=== PATIENT | male | born 1995 | race Caucasian/White ===

== ENCOUNTER 2018-05-05 07:22 | Emergency (ER) | payer OTHER ==
[2018-05-05 07:33] VITALS: BP 130/86
--- NOTE | 2018-05-05 08:28 | UC ---
Complaint Male HPI - HPI Summary HPI Summary: This is a healthy 23-year-old male who comes to the urgent care center because he is worried about having contracted chlamydia. The patient states that approximately one month ago he was with a partner and his condom broke. The female partner told him yesterday that she was with another partner who had chlamydia and that she is being treated. She did not say that she was positive on chlamydia testing. The patient essentially has no complaints. Specifically he does not have dysuria or penile discharge. - History of Current Complaint Chief Complaint: UCSTDScreening Stated Complaint: STD TESTING Time Seen by Provider: 05/05/18 07:55 Pain Intensity: 0 - Allergies/Home Medications Allergies/Adverse Reactions: Allergies Allergy/AdvReac Type Severity Reaction Status Date / Time corticosporin Allergy Unknown Uncoded 05/05/18 07:33 Reaction Details PMH/Surg Hx/FS Hx/Imm Hx - Additional Past Medical History Additional PMH: PMH is non contributory to present complaint. Patient does state that his previous blood pressure readings were borderline high. This was discussed and he will follow up. Previously Healthy: Yes Other History Of: Negative For: Anticoagulant Therapy - Surgical History Surgical History: Yes Surgery Procedure, Year, and Place: appy - Family History Known Family History: Positive: None - patient denies any hx of hypertension in his family - Social History Alcohol Use: Weekly Substance Use Type: Marijuana Substance Use Comment - Amount & Last Used: daily Smoking Status (MU): Never Smoked Tobacco Review of Systems Constitutional: Negative Skin: Negative Eyes: Negative ENT: Negative Respiratory: Negative Cardiovascular: Negative Gastrointestinal: Negative Genitourinary: Negative Motor: Negative Neurovascular: Negative Musculoskeletal: Negative Neurological: Negative Psychological: Negative Is Patient Immunocompromised?: No All Other Systems Reviewed And Are Negative: Yes - Comments Additional Review of Systems Comments: Patient is here for STD testing; no health complaints at this time. Physical Exam - Summary Physical Exam Summary: Appearance: The patient is well-appearing, is in no pain or distress, and is well-nourished. Eyes: Conjunctiva are clear. Pupils are equal and reactive to light and accommodation. Extra ocular muscle movement is intact. ENT: The hearing is grossly normal, the pharynx is normal, and the TMs are normal. There is no muffled or hoarse voice. No stridor. Neck: The neck is supple and there is no lymphadenopathy. Respiratory: The chest is nontender to palpation and without crepitus. The lungs are clear, there are normal breath sounds, and there is no respiratory distress. No wheezes, rales or rhonchi. Cardiovascular: Heart sounds reveal a regular rate and rhythm. There are no clicks, rubs or murmurs. There are no carotid bruits or thrills. Circulation is grossly intact. Abdomen: The abdomen is soft and nontender. There is no organomegaly. Bowel sounds are present and within normal limits. No point tenderness at McBurneys point. Musculoskeletal: Strength is intact. The patient moves all extremities. x. Neurological: The patient is alert. Motor and sensory are examination grossly intact. Speech is normal. Psychological: The patient displays age appropriate behavior Skin: Negative for rashes. : normal male genitalia; no pain on testicle palpation. Triage Information Reviewed: Yes Vital Signs: Initial Vital Signs Temp 99.1 F 05/05/18 07:27 Pulse 84 05/05/18 07:27 Resp 18 05/05/18 07:27 BP 130/86 05/05/18 07:27 Pulse Ox 98 05/05/18 07:27 Complaint Male Course/Dx - Course Course Of Treatment: Healthy male who comes to the urgent care center for STD testing. The patient is specifically concerned about chlamydia because of a possible exposure. The patient was tested by RNA urine and started on doxycycline, one pill twice a day for 7 days, pending the results of the chlamydia and gonorrhea testing. The patient has no signs or symptoms of chlamydia, and the course of treatment was discussed with the patient and he voiced understanding. The patient will follow up if there are any symptoms that develop or if his GC test is positive. - Differential Dx/Diagnosis Provider Diagnoses: STD TESTING: CHLAMYDIA/GONORRHEA Discharge - Sign-Out/Discharge Documenting (check all that apply): Patient Departure All imaging exams completed and their final reports reviewed: Yes - Discharge Plan Condition: Stable Disposition: HOME Prescriptions: DOXYcycline CAP(*) [DOXYcycline 100MG CAP(*)] 100 mg PO BID #14 cap Patient Education Materials: Chlamydia (ED) Referrals: Nancy Mehta MD [Primary Care Provider] - Additional Instructions: WE DISCUSSED: PLEASE SEEK CARE AT THE EMERGENCY DEPARTMENT IF SYMPTOMS WORSEN OR IF NEW SYMPTOMS DEVELOP. Based on your history and physical examination, so unlikely that you have Chlamydia but not impossible. We will be testing and I have given you doxycycline 1 pill twice a day for 7 days. If the test comes back negative you can stop doxycycline. If you develop any burning on urination or discharge, recheck. If you're testing shows any other illness, will call you and he will be treated appropriately. Your blood pressure reading today was above 120/80, indicating HYPERTENSION. Follow-up with your primary care provider within 4 weeks for blood pressure check and appropriate recommendations and treatment, as needed. - Billing Disposition and Condition Condition: STABLE Disposition: Home
== END 2018-05-05 08:29 | disposition home or self-care (01) ==
LOC: UCEAST 07:22
DX: Z11.3 Encounter for screening for infections with a predominantly sexual mode of transmission (principal); F12.90 Cannabis use, unspecified, uncomplicated; Z88.1 Allergy status to other antibiotic agents
CPT/HCPCS: 87491; 87591; 99212; G0463

== ENCOUNTER 2018-09-20 07:21 | Emergency (ER) | payer OTHER ==
[2018-09-20 07:33] VITALS: BP 120/76
--- NOTE | 2018-09-20 07:54 | UC ---
Throat Pain/Nasal Ned HPI - HPI Summary HPI Summary: Patient presents to urgent care with 5 days progressive sore throat. Patient states she's got some postnasal drip and sinus congestion. Patient states his ears are full. Patient without cough. Patient states he's been taking DayQuil and NyQuil with improvement. Patient denies rash. No abdominal pain. No nausea vomiting. Patient with mild fatigue. Patient was outside as a [employer] and states it's been difficult because he gets so congested. Patient wears a piece mask for warmth outside. Patient states she's had tonsillitis repeatedly and this feels similar. Patient's medications reviewed this visit - History of Current Complaint Chief Complaint: UCGeneralIllness Stated Complaint: SORE THROAT Time Seen by Provider: 09/20/18 07:54 Hx Obtained From: Patient Pain Intensity: 0 - Allergies/Home Medications Allergies/Adverse Reactions: Allergies Allergy/AdvReac Type Severity Reaction Status Date / Time corticosporin Allergy Unknown Uncoded 05/05/18 07:33 Reaction Details Home Medications: Home Medications D-Methorphan/PE/Acetaminophen [Gnp Day Time Cold/Flu Rel] 1 liq PO SEE INSTRUCTIONS PRN 09/20/18 [History Confirmed 09/20/18] PMH/Surg Hx/FS Hx/Imm Hx Previously Healthy: Yes Other History Of: Negative For: Anticoagulant Therapy - Surgical History Surgical History: Yes Surgery Procedure, Year, and Place: appy - Family History Known Family History: Positive: Non-Contributory - Social History Occupation: Employed Full-time - [employer] Lives: With Family Alcohol Use: Weekly Substance Use Type: Marijuana Substance Use Comment - Amount & Last Used: daily Smoking Status (MU): Never Smoked Tobacco - Immunization History Most Recent Tetanus Shot: utd Review of Systems All Other Systems Reviewed And Are Negative: Yes Constitutional: Positive: Fatigue Skin: Positive: Negative ENT: Positive: Sore Throat, Sinus Congestion Respiratory: Positive: Negative Is Patient Immunocompromised?: No Physical Exam - Summary Physical Exam Summary: Vital Signs Reviewed: Yes A+Ox3, no distress Eyes: Conjunctiva Clear, OTILIO. EOM intact and full ENT: Hearing grossly normal TM x 2 clear, turbinates inflammed and boggy, + PND thick, mmoist, uvula midline, no exudate, no erythema Neck: Positive: Supple Respiratory: Positive: No respiratory distress, No accessory muscle use + CTA throughout no w/r Cardiovascular: RRR nl s1, s2 no m/r CBT <2 sec abd soft + BS nt/nd no guarding, no distension Musculoskeletal Exam: POSADAS x 4 without difficulty Strength Intact, ROM Intact Neurological: Positive: Alert, + sensation throughout Psychological: Positive: Normal Response To Family Skin: Positive: no rash, no ecchymosis Triage Information Reviewed: Yes Vital Signs: Initial Vital Signs Temp 98 F 09/20/18 07:29 Pulse 78 09/20/18 07:29 Resp 18 09/20/18 07:29 BP 120/76 09/20/18 07:29 Pulse Ox 96 09/20/18 07:29 Throat Pain/Nasal Course/Dx - Course Course Of Treatment: Patient presents with 5 days progressive head congestion sore throat postnasal drip. Patient reports tactile temperatures. Patient's been taking DayQuil Ricardo with improvement. Patient states she's a painful swallowing but isn't able to eat and drink. On exam vital signs are stable. Patient did take DayQuil this morning. Patient with exam consistent with sinusitis. Patient with pain over his maxillary sinuses left greater than right. Patient with thick postnasal drip. Patient does have some mild erythema of his tonsils. Strep is negative. We'll place patient in biotics for sinuses. Flonase. Motrin Tylenol. Discussed with patient secretion precaution return precaution. Patient comfortable in agreement with plan. - Differential Dx/Diagnosis Provider Diagnosis: Rhinosinusitis Discharge - Sign-Out/Discharge Documenting (check all that apply): Patient Departure All imaging exams completed and their final reports reviewed: No Studies - Discharge Plan Condition: Stable Disposition: HOME Prescriptions: Amoxicillin PO (*) [Amoxicillin 875 MG (*)] 875 mg PO BID #20 tab Fluticasone NASAL SPRAY 50MCG* [Flonase NASAL SPRAY 50MCG*] 2 spray BOTH NARES DAILY #1 btl Patient Education Materials: Pharyngitis (ED), Rhinosinusitis (ED) Referrals: Nancy Mehta MD [Primary Care Provider] - Additional Instructions: - Okay to alternate ibuprofen (Advil, Motrin) 600mg and Tylenol 1000mg every 3 hours for pain. Take with food. Do NOT take for more than 4-5 days - Okay to gargle and spit warm salt water every 4 hours as needed for pain - Stay well hydrated - frequent sips of cold fluids will be soothing to your throat (popsicles, jello, ice cream, ice water). Avoid excess caffeine until your symptoms have resolved. -Throat infections are spread by oral secretions - do not share eating or drinking utensils until you symptoms are resolved. Clean items that may get your secretions such as cell phones, ipads, computer mouse, television remotes. Once you have been on antibiotics for 2 days, change your toothbrush and your pillowcase. - Take antibiotics as prescribed until - Use nasal spray as prescribed - Humidify the air in the room where you sleep - boil water, run a hot steam shower, vaporizer, cups of water by heat register - Okay to take over the counter cough and decongestant medication - Contact your doctor to arrange a follow-up appointment as needed - Billing Disposition and Condition Condition: STABLE Disposition: Home
== END 2018-09-20 08:12 | disposition home or self-care (01) ==
LOC: UCEAST 07:21
DX: J32.9 Chronic sinusitis, unspecified (principal); Z88.8 Allergy status to other drugs, medicaments and biological substances
CPT/HCPCS: 87651; 99212; G0463